=== PATIENT | male | born 1960 | race Caucasian/White ===

== ENCOUNTER 2017-08-12 18:05 | Emergency (ER) | payer OTHER, BC ==
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
--- NOTE | 2017-08-13 10:35 | CR ---
EXAM DATE: 08/12/17 PATIENT'S AGE: 57 Patient: CHRISTIANO BLAIR Facility: [place], [place] Site . Site : 1960 Study: XRay Extremity Left tib/fib [id number] 7:21:55 PM Ordering Physician: Doctor Rdz Final Report: INDICATION: Pain 2 views of the left tibia and fibula. FINDINGS: There is normal alignment. No acute fracture. No acute osseous abnormality seen. Dictated by Alis Kim MD @ Aug 12 2017 7:47PM (Electronic Signature) Report Signed by Proxy. MAKAYLA
--- NOTE | 2017-08-13 10:36 | CR ---
EXAM DATE: 08/12/17 PATIENT'S AGE: 57 Patient: CHRISTIANO BLAIR Facility: [place], [place] Site . Site : 1960 Study: XRay Extremity Left ankle [id number] 7:22:15 PM Ordering Physician: Doctor Rdz Final Report: Injury 3 views of the left ankle. FINDINGS: There is mild soft tissue swelling. Normal alignment. No acute fracture. Talar dome is intact. Plantar calcaneal spur. IMPRESSION: 1. No acute fracture. Dictated by Alis Kim MD @ Aug 12 2017 7:48PM (Electronic Signature) Report Signed by Proxy. MAKAYLA
== END 2017-08-12 20:22 | disposition home or self-care (01) ==
LOC: MW.ED 18:05
DX: S90.02XA Contusion of left ankle, initial encounter (principal); V86.92XA Unspecified occupant of snowmobile injured in nontraffic accident, initial encounter
CPT/HCPCS: 73590-26-LT; 73590-LT; 73610-26-LT; 73610-LT; 99283